=== PATIENT | male | born 1945 | race Native Hawaiian/Other Pacific Islander ===

== ENCOUNTER 2017-01-24 08:05 | Outpatient (CLI) | payer OTHER, MEDICARE | END 2017-01-24 09:05 | disposition home or self-care (01) | LOC: CT 08:05 | DX: R51 Headache (principal) | CPT/HCPCS: 36415; 82565; 84520 ==

== ENCOUNTER 2017-12-25 10:23 | Outpatient (CLI) | payer OTHER, MEDICARE | END 2017-12-25 22:49 | disposition home or self-care (01) | LOC: LABW 10:23 | DX: M25.512 Pain in left shoulder (principal) | CPT/HCPCS: 36415; 82565; 84520 ==

== ENCOUNTER 2018-02-14 08:20 | Outpatient (CLI) | payer OTHER, MEDICARE ==
[2018-02-14 08:59] LABS: POTASSIUM 3.9 mmol/L (3.6-5.2)
[2018-02-14 09:03] LABS: PLATELET COUNT 330 K/uL (142-355)
== END 2018-02-14 19:11 | disposition home or self-care (01) ==
LOC: LABW 08:20
PROVIDERS: Internal Medicine Cardiovascular Disease
DX: I25.10 Atherosclerotic heart disease of native coronary artery without angina pectoris (principal); E11.9 Type 2 diabetes mellitus without complications
CPT/HCPCS: 36415; 80053; 80061; 83036; 84443; 85027

== ENCOUNTER 2018-03-01 07:50 | Outpatient (CLI) | payer OTHER, MEDICARE ==
[2018-03-01 08:21] LABS: PLATELET COUNT 288 K/uL (142-355)
[2018-03-01 08:42] LABS: POTASSIUM 4.3 mmol/L (3.6-5.2)
== END 2018-03-01 19:36 | disposition home or self-care (01) ==
LOC: LABW 07:50
DX: R94.39 Abnormal result of other cardiovascular function study (principal); I10 Essential (primary) hypertension; R00.2 Palpitations
CPT/HCPCS: 36415; 80053; 80061; 82248; 85027

== ENCOUNTER 2019-06-25 10:38 | Outpatient (CLI) | payer OTHER, MEDICARE | END 2019-06-25 21:53 | disposition home or self-care (01) | LOC: RAD 10:38 | DX: K59.01 Slow transit constipation (principal) ==

== ENCOUNTER 2019-06-26 07:41 | Outpatient (CLI) | payer OTHER, MEDICARE ==
[2019-06-26 08:04] LABS: PLATELET COUNT 298 K/uL (142-355)
[2019-06-26 08:47] LABS: POTASSIUM 4.4 mmol/L (3.6-5.2)
== END 2019-06-26 20:10 | disposition home or self-care (01) ==
LOC: LABW 07:41
PROVIDERS: Internal Medicine
DX: E11.9 Type 2 diabetes mellitus without complications (principal); E55.9 Vitamin D deficiency, unspecified
CPT/HCPCS: 36415; 80053; 80061; 81000; 82306; 83036; 84439; 84443; 85027

== ENCOUNTER 2019-09-12 09:11 | Emergency (ER) | payer OTHER, MEDICARE ==
[~2019-09-12] VITALS: Ht 175.3 cm; Wt 99.8 kg
[2019-09-12 09:21] VITALS: TEMP 97.7
[2019-09-12 09:47] LABS: PLATELET COUNT 284 K/uL (142-355)
[2019-09-12 09:58] LABS: POTASSIUM 4.2 mmol/L (3.6-5.2)
[2019-09-12 10:06] LABS: PARTIAL THROMBOPLASTIN TIME 23.2 SECONDS (24.5-33.6)
[2019-09-12 13:38] VITALS: BP 127/61
== END 2019-09-12 13:38 | disposition home or self-care (01) ==
LOC: ED 09:11
PROVIDERS: Family Medicine
DX: R42 Dizziness and giddiness (principal); M51.36 Other intervertebral disc degeneration, lumbar region; I10 Essential (primary) hypertension
CPT/HCPCS: 36415; 80053; 81000; 85027; 85610; 85730; 99283

== ENCOUNTER 2020-07-06 07:58 | Outpatient (CLI) | payer OTHER, MEDICARE ==
[2020-07-06 09:09] LABS: PLATELET COUNT 273 K/uL (142-355)
[2020-07-06 09:10] LABS: POTASSIUM 4.7 mmol/L (3.6-5.2)
== END 2020-07-06 19:06 | disposition home or self-care (01) ==
LOC: LABW 07:58
PROVIDERS: ATTEND Internal Medicine Cardiovascular Disease
DX: E11.9 Type 2 diabetes mellitus without complications (principal); E78.49 Other hyperlipidemia; I10 Essential (primary) hypertension
CPT/HCPCS: 36415; 80048; 80061; 80076; 83036; 84443; 85027

== ENCOUNTER 2021-06-24 11:37 | Outpatient (CLI) | payer OTHER, MEDICARE | END 2021-06-24 19:01 | disposition home or self-care (01) | LOC: LABW 11:37 | PROVIDERS: ATTEND Nurse Practitioner | DX: R19.4 Change in bowel habit (principal) | CPT/HCPCS: 83630; 87015; 87045; 87324; 87328; 87329; 87449; 87899 ==

== ENCOUNTER 2021-12-14 08:27 | Outpatient (CLI) | payer OTHER, MEDICARE | END 2021-12-14 19:08 | disposition home or self-care (01) | LOC: CT 08:27 | PROVIDERS: ATTEND Nurse Practitioner Family | DX: R42 Dizziness and giddiness (principal); J32.9 Chronic sinusitis, unspecified ==

== ENCOUNTER 2022-05-16 19:10 | Emergency (ER) | payer OTHER, MEDICARE ==
[~2022-05-16] VITALS: Ht 175.3 cm; Wt 97.5 kg
[2022-05-16 19:12] VITALS: TEMP 98.8
[2022-05-16 22:05] VITALS: BP 147/88
== END 2022-05-16 22:05 | disposition home or self-care (01) ==
LOC: ED 19:10
PROC: 0RSJXZZ Reposition Right Shoulder Joint, External Approach (ICD-10-PCS; principal; 2022-05-16)
DX: S43.014A Anterior dislocation of right humerus, initial encounter (principal); W01.0XXA Fall on same level from slipping, tripping and stumbling without subsequent striking against object, initial encounter; Y92.89 Other specified places as the place of occurrence of the external cause
CPT/HCPCS: 96360; 96374; 96375; 99284; J3360; J3490

== ENCOUNTER 2022-08-26 10:02 | Outpatient (CLI) | payer OTHER, MEDICARE | END 2022-08-26 18:55 | disposition home or self-care (01) | LOC: LABW 10:02 | PROVIDERS: ATTEND Podiatrist | DX: E11.42 Type 2 diabetes mellitus with diabetic polyneuropathy (principal) | CPT/HCPCS: 36415; 83036 ==